=== PATIENT | female | born 1970 | race Caucasian/White ===

== ENCOUNTER 2018-06-05 10:45 | Outpatient (REF) | payer BC, SELFPAY ==
[2018-06-05 19:37] LABS: ALT 40 U/L (12-78); AST 23 U/L (15-37); Albumin 3.6 g/dL (3.4-5.0); Alkaline Phosphatase 50 U/L (46-116); Anion Gap 7.9 mmol/L (3-11); BUN 29 mg/dL (7-18); Bilirubin, Total 0.3 mg/dL (0.2-1.0); CO2 28.1 mmol/L (21.0-32.0); CREATININE 1.32 mg/dL (0.55-1.02); Calcium 10.2 mg/dL (8.5-10.1); Chloride 103 mmol/L (98-107); Cholesterol 159 mg/dL (50-200); Estimated GFR 43.14 (mL/min/1.73m2); Glucose 235 mg/dL (70-100); HDL Cholesterol 26 mg/dL (40-60); LDL CHOLESTEROL 84 mg/dL (<100); Potassium 4.4 mmol/L (3.5-5.1); Sodium 139 mmol/L (136-145); Triglyceride 455 mg/dL (30-150)
== END 2018-06-05 10:46 ==
LOC: NCHCN 10:45
PROVIDERS: PCP Physician Assistant; Visit Provider Nurse Practitioner Family
DX: Z00.00 Encounter for general adult medical examination without abnormal findings (principal); E11.9 Type 2 diabetes mellitus without complications
CPT/HCPCS: 80053; 80061; 83721; 84443

== ENCOUNTER 2019-06-09 08:58 | Outpatient (REF) | payer BC, SELFPAY ==
[2019-06-09 21:02] LABS: Hemoglobin A1C 8.2 % (4.5-6.2)
[2019-06-09 21:06] LABS: ALT 36 U/L (14-59); AST 18 U/L (15-37); Albumin 3.9 g/dL (3.4-5.0); Alkaline Phosphatase 68 U/L (46-116); Anion Gap 7.2 mmol/L (3-11); BUN 25 mg/dL (7-18); Bilirubin, Total 0.3 mg/dL (0.2-1.0); CO2 27.8 mmol/L (21.0-32.0); CREATININE 1.43 mg/dL (0.55-1.02); Calculated LDL 55 mg/dL; Chloride 104 mmol/L (98-107); Cholesterol 143 mg/dL (50-200); Estimated GFR 39.16 (mL/min/1.73m2); Glucose 164 mg/dL (70-100); HDL Cholesterol 25 mg/dL (40-60); Potassium 4.6 mmol/L (3.5-5.1); Sodium 139 mmol/L (136-145); Total Protein 7.8 g/dL (6.4-8.2); Triglyceride 318 mg/dL (30-150)
== END 2019-06-09 09:18 ==
LOC: NCHCN 08:58
PROVIDERS: PCP Physician Assistant; Visit Provider Nurse Practitioner Family
DX: E11.40 Type 2 diabetes mellitus with diabetic neuropathy, unspecified (principal); I10 Essential (primary) hypertension
CPT/HCPCS: 80053; 80061; 83036

== ENCOUNTER 2020-04-20 01:23 | Outpatient (CLI) | payer BC, SELFPAY ==
--- NOTE | 2020-04-20 | DI.MAMMO_ITS ---
EXAM: MG MAMMO SCREENING CLINICAL HISTORY: SCREENING, Z12.39 TECHNIQUE: Mammograms were interpreted according to the usual protocol including computer analysis w [employer] CAD system, tomosynthesis and C-view imaging. COMPARISON: FINDINGS: The breasts are of moderate density with fairly symmetrical distribution of fibroglandular tissue. N o dominant mass or clumped microcalcification is identified in either breast. The current examinatio n is compared with previous examinations including September 2016 and there has been no gross interval change in appearance in comparison with the prior studies. IMPRESSION: No specific evidence of malignancy at this time. Routine screening examinations are suggested at yea rly intervals due to the family history of breast carcinoma. Category: BI-RADS Cat 1 - Negative Breast Density - Category B - Scattered areas of fibroglandular density
== END 2020-04-20 01:43 ==
PROVIDERS: PCP Nurse Practitioner Family; Visit Provider Nurse Practitioner Family
DX: Z12.31 Encounter for screening mammogram for malignant neoplasm of breast (principal); Z80.3 Family history of malignant neoplasm of breast
CPT/HCPCS: 77063; 77067

== ENCOUNTER 2020-07-07 09:15 | Outpatient (REF) | payer BC, SELFPAY ==
[2020-07-07 19:29] LABS: Abs Immature Grans 0.01 10^3/uL (0.0-0.06); Absolute Basophil Count 0.02 10^3/uL (0.0-0.2); Absolute Eosinophil Count 0.09 10^3/uL (0.0-0.7); Absolute Lymphocyte Count 1.62 10^3/uL (1.2-3.4); Absolute Monocyte Count 0.53 10^3/uL (0.1-0.8); Absolute Neutrophil Count 5.17 10^3/uL (1.2-6.7); Basophils % 0.3; Eosinophils % 1.2; HCT 34.8 % (36.0-46.0); HGB 11.2 g/dL (11.2-15.7); Immature Grans % 0.1; Lymphocytes % 21.8; MCH 29.3 pg (27.0-33.0); MCHC 32.2 % (32.0-36.0); MCV 91.1 fL (80-95); MPV 12.8 fL (8.0-11.0); Monocytes % 7.1; Neutrophils % 69.5; Nucleated RBC 0 %; Platelet Count 219 10^3/uL (130-400); RBC 3.82 10^6/uL (3.93-5.22); RDW 14.9 % (11.7-14.6); RDW-SD 49.1 fL; WBC 7.44 10^3/uL (4.4-10.8)
[2020-07-07 20:01] LABS: COMMENT (LAB VIEW ONLY) 197.18 mg/dL; Microalb ug/mg Crea 11.9 ug/mg Cr
[2020-07-07 20:18] LABS: ALT 30 U/L (14-59); AST 16 U/L (15-37); Albumin 4.4 g/dL (3.4-5.0); Alkaline Phosphatase 59 U/L (46-116); Anion Gap 5.7 mmol/L (3-11); BUN 28 mg/dL (7-18); CO2 29.3 mmol/L (21.0-32.0); CREATININE 1.41 mg/dL (0.55-1.02); Calcium 10.7 mg/dL (8.5-10.1); Calculated LDL 86 mg/dL (<100); Chloride 104 mmol/L (98-107); Cholesterol 158 mg/dL (<200); Estimated GFR 39.48 (mL/min/1.73m2); Glucose 86 mg/dL (74-106); HDL Cholesterol 29 mg/dL (40-60); Potassium 4.7 mmol/L (3.5-5.1); Sodium 139 mmol/L (136-145); Total Protein 7.9 g/dL (6.4-8.2); Triglyceride 218 mg/dL (<150)
[2020-07-07 20:37] LABS: Bilirubin, Total 0.4 mg/dL (0.2-1.0)
== END 2020-07-07 09:35 ==
LOC: NCHCN 09:15
PROVIDERS: PCP Nurse Practitioner Family; Visit Provider Physician Assistant
DX: E11.319 Type 2 diabetes mellitus with unspecified diabetic retinopathy without macular edema (principal); E11.40 Type 2 diabetes mellitus with diabetic neuropathy, unspecified; I10 Essential (primary) hypertension; J45.30 Mild persistent asthma, uncomplicated; Z68.41 Body mass index [BMI] 40.0-44.9, adult
CPT/HCPCS: 80053; 80061; 82043; 82570; 85025

== ENCOUNTER 2021-06-13 14:37 | Outpatient (REF) | payer BC, SELFPAY ==
[2021-06-13 20:41] LABS: Anion Gap 7.9 mmol/L (3-11); BUN 31 mg/dL (7-18); CO2 27.1 mmol/L (21.0-32.0); CREATININE 1.6 mg/dL (0.55-1.02); Calcium 9.9 mg/dL (8.5-10.1); Chloride 105 mmol/L (98-107); Estimated GFR 34.12 (mL/min/1.73m2); Glucose 218 mg/dL (74-106); Potassium 4.8 mmol/L (3.5-5.1); Sodium 140 mmol/L (136-145)
== END 2021-06-13 14:38 | disposition home or self-care (01) ==
LOC: NCHCN 14:37
PROVIDERS: PCP Nurse Practitioner Family; Referring Provider Physician Assistant; Visit Provider Physician Assistant
DX: E11.40 Type 2 diabetes mellitus with diabetic neuropathy, unspecified (principal)
CPT/HCPCS: 80048

== ENCOUNTER 2021-09-12 09:01 | Outpatient (REF) | payer BC, SELFPAY ==
[2021-09-12 20:59] LABS: Microalb ug/mg Crea 141.8 ug/mg Cr
== END 2021-09-12 09:02 | disposition home or self-care (01) ==
LOC: NCHCN 09:01
PROVIDERS: PCP Nurse Practitioner Family; Visit Provider Physician Assistant
DX: E11.40 Type 2 diabetes mellitus with diabetic neuropathy, unspecified (principal)
CPT/HCPCS: 82043; 82570

== ENCOUNTER → 2022-05-23 02:14 | Outpatient (CLI) | payer BC, SELFPAY ==
--- NOTE | 2022-05-23 | DI.RAD_ITS ---
Exam(s) XR HUMERUS RT EXAM: XR HUMERUS RT CLINICAL HISTORY: PAIN RT UPPER ARM, M79.621, PALPABLE MASS ON EXAM, H/O OLD FX. TECHNIQUE: 2D digital imaging was performed. COMPARISON: No exams were available for comparison FINDINGS: BONES: No acute fracture is present. There is in area of sclerosis in the upper 3rd of the humeral sh aft with some adjacent cortical thickening. There is a slight bowing deformity. Findings could be s econdary to an old fracture. There is no visible destructive mass. There is a question of old right rib fractures. The visualized portions of right lung appear clear.. Visualized portion of elbow an d shoulder joints are unremarkable. SOFT TISSUE: Normal. IMPRESSION: Sclerotic region in the upper humeral shaft with some adjacent bowing deformity. Findings could repr esent an old fracture. No mass is visible. MRI could be considered for further evaluation. DATA REPOSITORY: RADIATION DOSE DELIVERED:
== END ==
PROVIDERS: PCP Nurse Practitioner Family; Visit Provider Physician Assistant
DX: M21.821 Other specified acquired deformities of right upper arm (principal)
CPT/HCPCS: 73060

== ENCOUNTER 2022-05-23 03:48 | Outpatient (CLI) | payer BC, SELFPAY ==
[2022-05-23 12:55] LABS: ALT 30 U/L (14-59); AST 19 U/L (15-37); Albumin 3.8 g/dL (3.4-5.0); Alkaline Phosphatase 51 U/L (46-116); Anion Gap 7.3 mmol/L (3-11); BUN 27 mg/dL (7-18); Bilirubin, Total 0.2 mg/dL (0.2-1.0); CO2 28.7 mmol/L (21.0-32.0); CREATININE 1.7 mg/dL (0.55-1.02); Calcium 10.3 mg/dL (8.5-10.1); Chloride 105 mmol/L (98-107); Estimated GFR 31.69 (mL/min/1.73m2); Glucose 95 mg/dL (74-106); Potassium 5.2 mmol/L (3.5-5.1); Sodium 141 mmol/L (136-145); Total Protein 7.9 g/dL (6.4-8.2)
[2022-05-23 22:14] LABS: Albumin ug/mg Crea 34 (<30); Albumin, Ur 1.9 mg/dL (See Note); Creatinine, Ur 55.1 mg/dL (See Note)
== END 2022-05-23 03:49 | disposition home or self-care (01) ==
LOC: LOS 03:48
PROVIDERS: PCP Nurse Practitioner Family; Visit Provider Physician Assistant
DX: E11.21 Type 2 diabetes mellitus with diabetic nephropathy (principal)
CPT/HCPCS: 36415; 80053; 82043; 82570

== ENCOUNTER → 2022-06-11 01:02 | Outpatient (CLI) | payer BC, SELFPAY ==
--- NOTE | 2022-06-11 | DI.MAMMO_ITS ---
Exam(s) MAMMO SCREENING EXAM: MAMMO SCREENING CLINICAL HISTORY: SCREENING,z12.31, FAMILY H/O BREAST CA TECHNIQUE: Bilateral full field digital CC and MLO mammographic images were obtained with 3D tomosyn thesis and utilizing computer aided detection (CAD). COMPARISON: Available for comparison. FINDINGS: Masses/Architectural Distortion: There is a nonspecific asymmetric density in the central left breast on the MLO view. Spot compression views requested for further evaluation. Ultrasound may be indica yan at that time. Microcalcifications: There is a new collection of calcifications in the outer right breast in the CC and MLO views. This area should be further evaluated with spot magnification views. Skin Thickening/Nipple Retraction: None. IMPRESSION: 1. Additional views of both the right and left breast as described above. 2. Please see the above discussion for complete details. BI-RADS Category 0 - Assessment Incomplete: Need additional imaging evaluation Breast Density - Category B - Scattered areas of fibroglandular density Breast density category C or D implies that the patient has dense breast tissue. Dense breast tissue is very common and is not abnormal but dense breast tissue can make it harder to find cancer on a ma mmogram. Also, dense breast tissue may increase their breast cancer risk. This information about the result of the mammogram report was provided to the patient to raise their awareness. Use this report when you speak with the patient about their risks for breast cancer, which includes their family hist ory. At that time, you may recommend for more screening tests (Ultrasound or MRI) as they might be us eful based on their risk. A negative radiographic report should not delay biopsy if a dominant or clinically suspicious mass is present. Up to ten percent of cancers are not identified on mammography. A negative report may reinforce clinical impression. Adenosis and dense breasts may obscure an underlying neoplasm. False positive reports average 6 to 10%. Patient will receive a letter notifying them of these results.
== END ==
PROVIDERS: PCP Physician Assistant; Visit Provider Physician Assistant
DX: Z12.31 Encounter for screening mammogram for malignant neoplasm of breast (principal); R92.8 Other abnormal and inconclusive findings on diagnostic imaging of breast
CPT/HCPCS: 77063; 77067

== ENCOUNTER → 2022-06-13 02:13 | Outpatient (CLI) | payer BC, SELFPAY ==
--- NOTE | 2022-06-13 | DI.MAMMO_ITS ---
Exam(s) US BREAST LT COMPLETE US BREAST RT LIMITED MG MAMMO SCREEN CALL BACK BI EXAM: MG MAMMO SCREEN CALL BACK BI and U/S breast bilateral CLINICAL HISTORY: F/U MAMMO, ASYMMETRIC DENSITY CENTRAL LT BREAST, NEW RT CALCIFICATIONS. TECHNIQUE: Craniocaudal and mediolateral oblique Full Field Digital Mammography views of the bilater al breast with Computer Aided Diagnosis followed by Tomosynthesis and bilateral breast ultrasound. COMPARISON: Comparison made with prior examinations. FINDINGS: Mammography/Tomosynthesis: Masses/Architectural Distortion: Additional views of the left breast fail to show persistent discrete mass. Microcalcifictions: Spot magnification views of the right breast show coarse calcifications associate d with an underlying nodule. This likely reflects a degenerating small fibroadenoma. Skin Thickening/Nipple Retraction: None. Bilateral breast US: Echotexture: Normal appearance of the glandular tissue. Shadowing: No suspicious foci. Cyst: There is a 0.2 cm cyst at the 4 o'clock position of the left breast 2 cm from the nipple. Solid lesions: None seen. Ductal dilation: None. IMPRESSION: 1. No evidence for malignancy is noted at this time. 2. A six-month follow-up bilateral mammogram is recommended for re-evaluation. 3. The findings were discussed with the patient on the date of the examination. BI-RADS Category 3 - 6 month - Probably Benign Finding: Recommend follow-up imaging in 6 months Breast Density - Category B - Scattered areas of fibroglandular density Breast density Category C or D implies that the patient has dense breast tissue. Dense breast tissue can make it harder to find cancer on a mammogram. Dense breast tissue is also associated with an incr eased risk of breast cancer. This information about the result of the mammogram report was provided to the patient to raise their awareness. Use this report when you speak with the patient about their risks for breast cancer, which includes their family history. At that time, you may recommend additional screening tests (Ultrasoun d or MRI) as these tests may add significant information. A negative radiographic report should not delay biopsy if a dominant or clinically suspicious mass is present. Up to ten percent of cancers are not identified on mammography. A negative report may reinforce clinical impression. Adenosis and dense breasts may obscure an underlying neoplasm. False positive reports average 6 to 10%. Patient will receive a letter notifying them of these results.
== END ==
PROVIDERS: PCP Physician Assistant; Visit Provider Physician Assistant
DX: Z12.31 Encounter for screening mammogram for malignant neoplasm of breast (principal); R92.8 Other abnormal and inconclusive findings on diagnostic imaging of breast
CPT/HCPCS: 76642; 77063; 77067

== ENCOUNTER 2022-12-05 14:49 | Outpatient (REF) | payer BC, SELFPAY ==
[2022-12-06 09:36] LABS: Anion Gap 7.9 mmol/L (3-11); BUN 22 mg/dL (7-18); CO2 27.1 mmol/L (21.0-32.0); CREATININE 1.7 mg/dL (0.55-1.02); Calcium 10.1 mg/dL (8.5-10.1); Chloride 105 mmol/L (98-107); Estimated GFR 35.86 (mL/min/1.73m2); Glucose 199 mg/dL (74-106); Potassium 4.5 mmol/L (3.5-5.1); Sodium 140 mmol/L (136-145)
== END 2022-12-05 14:50 | disposition home or self-care (01) ==
LOC: NCHCN 14:49
PROVIDERS: PCP Physician Assistant; Visit Provider Physician Assistant
DX: I10 Essential (primary) hypertension (principal); D50.9 Iron deficiency anemia, unspecified; E11.21 Type 2 diabetes mellitus with diabetic nephropathy
CPT/HCPCS: 80048

== ENCOUNTER 2022-12-10 02:28 | Outpatient (CLI) | payer BC, SELFPAY ==
--- NOTE | 2022-12-10 | DI.US_ITS ---
Exam(s) US BREAST LT COMPLETE US BREAST RT COMPLETE EXAM: US BREAST BILATERAL COMPLETE CLINICAL HISTORY: Abnormal bilat mammo. TECHNIQUE: Complete ultrasound of the bilateral breast was performed including all 4 quadrants, the retroareolar region, and the ipsilateral axilla. COMPARISON: Prior mammograms were reviewed. FINDINGS: SEE COMBINED REPORT IMPRESSION: Appropriate follow-up is . Category: Density: Breast density Category C or D implies that the patient has dense breast tissue. Dense breast tissue can make it harder to find cancer on a mammogram. Dense breast tissue is also associated with an incr eased risk of breast cancer. This information about the result of the mammogram report was provided to the patient to raise their awareness. Use this report when you speak with the patient about their risks for breast cancer, which includes their family history. At that time, you may recommend additional screening tests (Ultrasoun d or MRI) as these tests may add significant information. A negative radiographic report should not delay biopsy if a dominant or clinically suspicious mass is present. Up to ten percent of cancers are not identified on mammography. A negative report may reinforce clinical impression. Adenosis and dense breasts may obscure an underlying neoplasm. False positive reports average 6 to 10%. Patient will receive a letter notifying them of these results.
--- NOTE | 2022-12-10 | DI.MAMMO_ITS ---
Exam(s) MAMMO DIAGNOSTIC BI EXAM: MAMMO DIAGNOSTIC BI AND BILATERAL COMPLETE BREAST ULTRASOUND CLINICAL HISTORY: 6 MO F/U, F/U TO ABNL MAMMO. TECHNIQUE: BILATERAL CC AND MLO mammographic images were obtained with 3D tomosynthesis technique an ruth utilizing computer aided detection (CAD). COMPLETE BILATERAL BREAST ULTRASOUND WAS PERFORMED, including all 4 quadrants and both axillary regio ns. COMPARISON: Prior mammograms were reviewed, the most recent being June 2022. Prior ultrasound also reviewed. FINDINGS: DIAGNOSTIC BILATERAL MAMMOGRAM: The microcalcifications in the right breast appear unchanged and remain benign appearing. No new rig ht breast findings. In the left breast the previously described finding is actually less evident. No new left breast fin dings. COMPLETE BILATERAL BREAST ULTRASOUND: Left breast: No solid or significant cystic lesions in all 4 quadrants. Scanning of the left axilla is negative for adenopathy. Right breast: No significant focal findings. The microcalcifications are actually visible on ultraso und. Scanning of the right axilla is negative for significant adenopathy. IMPRESSION: 1. Benign mammographic findings. No radiographic evidence of malignancy. 2. Negative bilateral breast ultrasound Appropriate follow-up is to keep this patient on her yearly mammogram schedule, with earlier imaging if a self detected breast change is noted.. The patient was informed of the findings and follow-up recommendations by myself prior to leaving the department today. BI-RADS Category 2 - Benign Findings Breast Density - Category B - Scattered areas of fibroglandular density Breast density Category C or D implies that the patient has dense breast tissue. Dense breast tissue can make it harder to find cancer on a mammogram. Dense breast tissue is also associated with an incr eased risk of breast cancer. This information about the result of the mammogram report was provided to the patient to raise their awareness. Use this report when you speak with the patient about their risks for breast cancer, which includes their family history. At that time, you may recommend additional screening tests (Ultrasoun d or MRI) as these tests may add significant information. A negative radiographic report should not delay biopsy if a dominant or clinically suspicious mass is present. Up to ten percent of cancers are not identified on mammography. A negative report may reinforce clinical impression. Adenosis and dense breasts may obscure an underlying neoplasm. False positive reports average 6 to 10%. Patient will receive a letter notifying them of these results.
== END 2022-12-10 02:48 ==
LOC: DI 02:29
PROVIDERS: PCP Physician Assistant; Visit Provider Physician Assistant
DX: R92.8 Other abnormal and inconclusive findings on diagnostic imaging of breast (principal); N60.81 Other benign mammary dysplasias of right breast; N60.82 Other benign mammary dysplasias of left breast
CPT/HCPCS: 76642; 77062; 77066; G0279

== ENCOUNTER 2024-02-10 09:40 | Outpatient (REF) | payer BC, SELFPAY ==
[2024-02-10 19:10] LABS: Abs Immature Grans 0.02 10^3/uL (0.0-0.06); Absolute Basophil Count 0.04 10^3/uL (0.0-0.2); Absolute Eosinophil Count 0.14 10^3/uL (0.0-0.7); Absolute Lymphocyte Count 1.71 10^3/uL (1.2-3.4); Absolute Monocyte Count 0.35 10^3/uL (0.1-0.8); Absolute Neutrophil Count 3.39 10^3/uL (1.2-6.7); Basophils % 0.7 %; Eosinophils % 2.5 %; HCT 33.7 % (36.0-46.0); Immature Grans % 0.4 %; Lymphocytes % 30.3 %; MCH 31.5 pg (27.0-33.0); MCHC 32.6 % (32.0-36.0); MCV 97 fL (80-95); MPV 12.5 fL (8.0-11.0); Monocytes % 6.2 %; Neutrophils % 59.9 %; Platelet Count 172 10^3/uL (130-400); RBC 3.49 10^6/uL (3.93-5.22); RDW 14.6 % (11.7-14.6); RDW-SD 50.6 fL; WBC 5.65 10^3/uL (4.4-10.8)
[2024-02-10 19:37] LABS: ALT 37 U/L (14-59); AST 19 U/L (15-37); Albumin 3.9 g/dL (3.4-5.0); Alkaline Phosphatase 69 U/L (46-116); Anion Gap 10.4 mmol/L (3-11); BUN 34 mg/dL (7-18); Bilirubin, Total 0.3 mg/dL (0.2-1.0); CO2 24.6 mmol/L (21.0-32.0); CREATININE 1.8 mg/dL (0.55-1.02); Calcium 10.1 mg/dL (8.5-10.1); Chloride 108 mmol/L (98-107); Estimated GFR 33.27 (mL/min/1.73m2); Ferritin 56 ng/mL (8-252); Glucose 179 mg/dL (74-106); LDL CHOLESTEROL 69 mg/dL (<100); Potassium 4.5 mmol/L (3.5-5.1); Sodium 143 mmol/L (136-145); Total Protein 7.3 g/dL (6.4-8.2)
[2024-02-10 19:44] LABS: Iron 69 ug/dL (50-170); Total Iron Binding Capacity 292 ug/dL (250-450); Transferrin Sat 24 % (15-50)
[2024-02-10 21:03] LABS: COMMENT (LAB VIEW ONLY) 81.23 mg/dL
[2024-02-10 21:29] LABS: Microalb ug/mg Crea 340.6 ug/mg Cr
== END 2024-02-10 09:41 | disposition home or self-care (01) ==
LOC: NCHCN 09:40
PROVIDERS: PCP Physician Assistant; Visit Provider Physician Assistant
DX: D50.9 Iron deficiency anemia, unspecified (principal); E11.21 Type 2 diabetes mellitus with diabetic nephropathy
CPT/HCPCS: 80053; 83721; 82043; 82570; 82728; 83540; 83550; 85025

== ENCOUNTER → 2024-02-16 03:27 | Outpatient (CLI) | payer BC, SELFPAY ==
--- NOTE | 2024-02-16 | DI.MAMMO_ITS ---
Exam(s) MAMMO SCREENING EXAM: MAMMO SCREENING CLINICAL HISTORY: SCREENING, Z12.31 TECHNIQUE: Bilateral full field digital CC and MLO mammographic images were obtained with 3D tomosyn thesis and utilizing computer aided detection (CAD). COMPARISON: Available for comparison. FINDINGS: Masses/Architectural Distortion: None seen. Microcalcifications: No suspicious pleomorphic-type are seen. Skin Thickening/Nipple Retraction: None. IMPRESSION: 1. No significant interval change with no specific features of malignancy noted. 2. Unless there is more urgent need, screening mammography is recommended, as per [employer] guidelines. BI-RADS Category 1 - Negative Breast Density - Category B - Scattered areas of fibroglandular density Breast density category C or D implies that the patient has dense breast tissue. Dense breast tissue is very common and is not abnormal but dense breast tissue can make it harder to find cancer on a ma mmogram. Also, dense breast tissue may increase their breast cancer risk. This information about the result of the mammogram report was provided to the patient to raise their awareness. Use this report when you speak with the patient about their risks for breast cancer, which includes their family hist ory. At that time, you may recommend for more screening tests (Ultrasound or MRI) as they might be us eful based on their risk. A negative radiographic report should not delay biopsy if a dominant or clinically suspicious mass is present. Up to ten percent of cancers are not identified on mammography. A negative report may reinforce clinical impression. Adenosis and dense breasts may obscure an underlying neoplasm. False positive reports average 6 to 10%. Patient will receive a letter notifying them of these results.
== END ==
PROVIDERS: PCP Physician Assistant; Visit Provider Physician Assistant
DX: Z12.31 Encounter for screening mammogram for malignant neoplasm of breast (principal)
CPT/HCPCS: 77063; 77067

== ENCOUNTER 2024-05-13 22:35 | Outpatient (REF) | payer BC, SELFPAY | END 2024-05-13 22:36 | disposition home or self-care (01) | LOC: NCHCN 22:35 | PROVIDERS: PCP Physician Assistant; Visit Provider Physician Assistant | DX: E87.5 Hyperkalemia (principal) | CPT/HCPCS: 84132 ==

== ENCOUNTER 2024-06-04 01:03 | Outpatient (RCR) | payer BC, SELFPAY ==
[2024-05-28] MEDS: Normal Saline Flush 10 ML SYR IVP (13:36)
[2024-05-28] MEDS: IRON SUCROSE COMPLEX 300 MG in Normal Saline 250 ML 177 MG IVPB (13:36)
[2024-06-04] MEDS: Normal Saline Flush 10 ML SYR IVP (12:34)
[2024-06-04] MEDS: IRON SUCROSE COMPLEX 300 MG in Normal Saline 250 ML 176.667 MG IVPB (12:34)
== END 2024-06-05 23:59 | disposition home or self-care (01) ==
LOC: INF 01:03
PROVIDERS: PCP Physician Assistant; Visit Provider Family Medicine
DX: N18.30 Chronic kidney disease, stage 3 unspecified (principal); D63.1 Anemia in chronic kidney disease; D50.9 Iron deficiency anemia, unspecified
CPT/HCPCS: 96365; 96366; J1756

== ENCOUNTER 2024-06-11 00:50 | Outpatient (RCR) | payer BC, SELFPAY ==
[2024-06-11] MEDS: Normal Saline Flush 10 ML SYR IVP (13:23)
[2024-06-11] MEDS: IRON SUCROSE COMPLEX 300 MG in Normal Saline 250 ML 176.667 MG IVPB (13:23)
== END 2024-07-05 23:59 | disposition home or self-care (01) ==
LOC: INF 00:50
PROVIDERS: PCP Physician Assistant; Visit Provider Family Medicine
DX: D63.1 Anemia in chronic kidney disease; D50.9 Iron deficiency anemia, unspecified; N18.30 Chronic kidney disease, stage 3 unspecified
CPT/HCPCS: 96365; 96366; J1756

== ENCOUNTER 2024-07-30 00:39 | Outpatient (RCR) | payer BC, SELFPAY ==
[2024-07-19] MEDS: IRON SUCROSE COMPLEX 300 MG in Normal Saline 250 ML 176.667 MG IVPB (09:32)
[2024-07-19] MEDS: Normal Saline Flush 10 ML SYR IVP (09:33)
[2024-07-30] MEDS: Normal Saline Flush 10 ML SYR IVP (13:36)
[2024-07-30] MEDS: IRON SUCROSE COMPLEX 300 MG in Normal Saline 250 ML 176.667 MG IVPB (13:36)
== END 2024-08-05 23:59 | disposition home or self-care (01) ==
LOC: INF 00:39
PROVIDERS: PCP Physician Assistant; Visit Provider Family Medicine
DX: N18.30 Chronic kidney disease, stage 3 unspecified (principal); D63.1 Anemia in chronic kidney disease; D50.9 Iron deficiency anemia, unspecified
CPT/HCPCS: 96365; 96366; J1756

== ENCOUNTER 2024-10-31 17:01 | Outpatient (REF) | payer BC, SELFPAY ==
[2024-10-31 10:57] LABS: Creatinine,Urine 38.41 mg/dL
[2024-10-31 11:04] LABS: Creatinine,24hr Ur 1.38 g/24hr (0.60-1.80); Total Volume 3600 ml
[2024-11-01 08:41] LABS: Calcium Urine <1.0 mg/dL (See Note); Calcium Urine 24 hr <36 mg/24hr (100-300); Timed Urine Volume 3600 mL
== END 2024-10-31 17:02 | disposition home or self-care (01) ==
LOC: LBN 17:01
PROVIDERS: PCP Physician Assistant; Visit Provider Internal Medicine
DX: E21.3 Hyperparathyroidism, unspecified (principal)
CPT/HCPCS: 81050; 82340; 82570

== ENCOUNTER 2025-04-14 12:57 | Outpatient (CLI) | payer BC, SELFPAY ==
[2025-04-14 14:50] LABS: Albumin 4.0 g/dL (3.4-5.0); Calcium 9.2 mg/dL (8.5-10.1)
[2025-04-14 15:05] LABS: TSH 3.97 uIU/mL (0.36-3.74)
== END 2025-04-14 12:58 | disposition home or self-care (01) ==
LOC: LBO 12:57
PROVIDERS: Student in an Organized Health Care Education/Training Program; PCP Physician Assistant; Visit Provider Internal Medicine
DX: D49.7 Neoplasm of unspecified behavior of endocrine glands and other parts of nervous system (principal); E21.0 Primary hyperparathyroidism
CPT/HCPCS: 36415; 82040; 82310; 83970; 84443

== ENCOUNTER 2025-04-28 01:14 | Outpatient (CLI) | payer BC, SELFPAY ==
--- NOTE | 2025-04-28 11:20 | DI.RAD_ITS ---
Exam(s) XR KNEE LT 3V AP,LAT,KOURTNEY EXAM: XR KNEE LT 3V AP,LAT,KOURTNEY CLINICAL HISTORY: LT KNEE PAIN,M25.562. TECHNIQUE: 2D digital imaging was performed. Three views. COMPARISON: No exams were available for comparison FINDINGS: BONES: No acute fracture is present. No bony destructive lesion is seen. JOINTS: The knee is normally aligned. Moderate narrowing of the medial femoral tibial joint space and periarticular spurring. Mild spurring at the articular aspect of the patella. No joint effusion is seen. SOFT TISSUE: Rounded calcifications in the medial subcutaneous. 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 DATA REPOSITORY: RADIATION DOSE DELIVERED:
== END 2025-04-28 01:34 ==
PROVIDERS: PCP Physician Assistant; Visit Provider Physician Assistant
DX: M17.12 Unilateral primary osteoarthritis, left knee (principal)
CPT/HCPCS: 73562

== ENCOUNTER 2025-07-08 09:43 | Outpatient (CLI) | payer BC, SELFPAY ==
[2025-07-08 10:55] LABS: Anion Gap 8.4 mmol/L (3-11); BUN 27 mg/dL (7-18); CO2 29.6 mmol/L (21.0-32.0); Calcium 8.9 mg/dL (8.5-10.1); Chloride 106 mmol/L (98-107); Estimated GFR 30.80 (mL/min/1.73m2); Glucose 134 mg/dL (74-106); Potassium 4.6 mmol/L (3.5-5.1); Sodium 144 mmol/L (136-145); Vitamin D 25 Total 34 ng/mL (30-100)
== END 2025-07-08 09:44 | disposition home or self-care (01) ==
PROVIDERS: PCP Physician Assistant; Visit Provider Surgery
DX: Z98.890 Other specified postprocedural states (principal); Z90.89 Acquired absence of other organs
CPT/HCPCS: 36415; 80048; 82306; 82330; 83970

== ENCOUNTER 2025-09-30 09:44 | Outpatient (CLI) | payer BC, SELFPAY ==
[2025-09-30 10:36] LABS: Calcium 9.0 mg/dL (8.3-10.6)
[2025-09-30 10:39] LABS: TSH 3.86 uIU/mL (0.55-4.78)
[2025-10-03 14:22] LABS: Calcium, Random Ur <1 mg/dL; Creatinine, Random Ur 22 mg/dL (16 - 326)
== END 2025-09-30 09:45 | disposition home or self-care (01) ==
LOC: LBO 09:44
PROVIDERS: Internal Medicine; PCP Physician Assistant; Visit Provider Student in an Organized Health Care Education/Training Program
DX: E21.3 Hyperparathyroidism, unspecified (principal); E11.65 Type 2 diabetes mellitus with hyperglycemia; Z79.4 Long term (current) use of insulin; D49.7 Neoplasm of unspecified behavior of endocrine glands and other parts of nervous system; E21.0 Primary hyperparathyroidism
CPT/HCPCS: 36415; 82310; 83970; 84443